=== PATIENT | female | born 1990 | race Asian ===

== ENCOUNTER 2023-02-22 12:04 | Inpatient (IN) ==
[2023-02-22] MEDS ORDERED: Lidocaine 1% VIAL 10 MG/ML 30 ML VIAL INJ PRN (13:32)
[2023-02-22] MEDS ORDERED: Buffered Lidocaine 1% SYRIN 1 ml INTRADERM ONE (13:32)
[2023-02-22] MEDS ORDERED: miSOPROStol 100 mcg TAB VAGINAL ONE (13:32)
[2023-02-22] MEDS ORDERED: Lactated Ringers 1000 ml BAG 1,000 ML IV ONE (13:32)
[2023-02-22] MEDS ORDERED: Promethazine INJ(RESTRICTED) 25 MG/ML 1 ml VIAL IV PRN (13:32)
[2023-02-22 14:44] LABS: Urine Benzodiazepine Screen None Detected (None Detect); Urine Cannabinoids Screen None Detected (None Detect); Urine Opiates Screen None Detected (None Detect)
[2023-02-22] MEDS: Lactated Ringers 1000 ml BAG 1,000 ML IV SCH (20:26)
[2023-02-22 20:58] LABS: ABS Eosinophils 0.2 10^3/uL (0.0-0.5); ABS Lymphocytes 2.1 10^3/uL (1.0-4.8); ABS Monocytes 1.3 10^3/uL (0.0-0.9); ABS Neutrophils 8.7 10^3/uL (1.5-7.6); Eosinophil % 1.8 %; Hematocrit 36.2 % (35-45); Hemoglobin 12.3 g/dL (11.5-14.3); Mean Corpuscular Hemoglobin 31.6 pg (27-33); Mean Corpuscular Hgb Conc 34.1 g/dL (31-36); Mean Corpuscular Volume 92.5 fL (80-97); Mean Platelet Volume 9.9 fL (7.5-11.2); Platelet Count 196 10^3/uL (150-450); Red Blood Count 3.91 10^6/uL (3.63-4.92); Red Cell Distribution Width 14.2 % (12-17); White Blood Count 12.2 10^3/uL (3.8-11.8)
[2023-02-22 21:13] LABS: Albumin 3.3 g/dL (3.2-5.2); Calcium 8.4 mg/dL (8.6-10.3); Potassium 4.4 mmol/L (3.5-5.0); Total Bilirubin 0.5 mg/dL (0.2-1.0)
[2023-02-22 21:19] LABS: Albumin/Globulin Ratio 1.1 (1-3); Creatinine, Serum 0.63 mg/dL (0.51-0.95); Total Protein 6.3 g/dL (6.4-8.9); eGFR CKD-EPI 120.8 (>60)
[2023-02-22] MEDS ORDERED: Morphine 10 MG/ML VIAL (1 ml) IV PRN (21:59)
[2023-02-23] MEDS: Oxytocin in LR 20,000 MILLI.UNIT/1,000 ML BAG IV SCH (02:29)
[2023-02-23] MEDS: Triamcinolone 0.5% OINT 1 TUBE TOPICAL SCH ×3 (05:15→17:14)
[2023-02-23] MEDS ORDERED: LEVOTHYROXINE 50 MCG PO SCH (09:00)
[2023-02-23] MEDS ORDERED: Dinoprostone 10 MG VAG.SUPP VAGINAL ONE (11:50)
[2023-02-23 12:51] LABS: ABS Basophils 0.1 10^3/uL (0.0-0.1); ABS Eosinophils 0.2 10^3/uL (0.0-0.5); ABS Lymphocytes 1.6 10^3/uL (1.0-4.8); ABS Monocytes 1.4 10^3/uL (0.0-0.9); ABS Neutrophils 11.4 10^3/uL (1.5-7.6); Eosinophil % 1.4 %; Hematocrit 35.2 % (35-45); Hemoglobin 12.1 g/dL (11.5-14.3); Lymphocyte % 10.7 %; Mean Corpuscular Hemoglobin 31.8 pg (27-33); Mean Corpuscular Hgb Conc 34.3 g/dL (31-36); Mean Corpuscular Volume 92.8 fL (80-97); Mean Platelet Volume 9.6 fL (7.5-11.2); Platelet Count 183 10^3/uL (150-450); Red Cell Distribution Width 14.1 % (12-17); White Blood Count 14.6 10^3/uL (3.8-11.8)
[2023-02-23] MEDS: Lactated Ringers 1000 ml BAG 1,000 ML IV SCH (13:00)
[2023-02-23 13:25] LABS: Albumin 3.2 g/dL (3.2-5.2); Calcium 8.8 mg/dL (8.6-10.3); Creatinine, Serum 0.5 mg/dL (0.51-0.95); Globulin 3.3 g/dL (2-4); Total Bilirubin 0.4 mg/dL (0.2-1.0); Total Protein 6.5 g/dL (6.4-8.9); eGFR CKD-EPI 127.7 (>60)
[2023-02-23] MEDS ORDERED: Ondansetron 4 mg VIAL 2 MG/ML 2 ml VIAL IV PRN (20:47)
[2023-02-23] MEDS ORDERED: Morphine 10 MG/ML VIAL (1 ml) IV ONE (20:47)
[2023-02-23] MEDS ORDERED: Promethazine INJ(RESTRICTED) 25 MG/ML 1 ml VIAL IV PRN (20:54)
[2023-02-24] MEDS: Triamcinolone 0.5% OINT 1 TUBE TOPICAL SCH ×2 (01:36→09:09)
[2023-02-24] MEDS ORDERED: Lidocaine 2% JELLY 6 ML Topical TOPICAL ONE (06:39)
[2023-02-24] MEDS ORDERED: OBEPIDURAL (200 ML) 200 ML EPIDURAL ONE (06:55)
[2023-02-24] MEDS ORDERED: Lidocaine 1.5% EPI 1:200,000 30 ML SDV ONE (06:55)
[2023-02-24] MEDS: Lactated Ringers 1000 ml BAG 1,000 ML IV SCH ×3 (07:14→15:44)
[2023-02-24] MEDS ORDERED: Lactated Ringers 1000 ml BAG 500 ML IV PRN ×2 (08:54→11:51)
[2023-02-24] MEDS ORDERED: Sodium Citrate/Citric Acid LIQ 15 ML UDC PO PRN (08:54)
[2023-02-24] MEDS ORDERED: Phenylephrine 40 mcg/mL 10mL (400mcg) SYRINGE IV PUSH PRN ×3 (08:54→11:51)
[2023-02-24] MEDS ORDERED: Lactated Ringers 1000 ml BAG 1,000 ML IV ONE (08:54)
[2023-02-24] MEDS: Phenylephrine 40 mcg/mL 10mL (400mcg) SYRINGE IV PUSH PRN ×3 (08:55→11:34)
[2023-02-24] MEDS ORDERED: OBEPIDURAL (200 ML) 200 ML EPIDURAL SCH (09:00)
[2023-02-24 10:02] LABS: Urine Appearance Turbid; Urine Bilirubin Negative (Negative); Urine Blood 3+ (Negative); Urine Color Amber; Urine Glucose Negative (Negative); Urine Ketones Trace (Negative); Urine Nitrite Negative (Negative); Urine Protein 2+(100 mg/dL) (Negative); Urine Specific Gravity 1.017 (1.002-1.030); Urine Urobilinogen Negative (Negative)
[2023-02-24] MEDS: Oxytocin in LR 20,000 MILLI.UNIT/1,000 ML BAG IV SCH (10:38)
[2023-02-24 10:52] LABS: Urine Bacteria Absent (Absent); Urine Red Blood Cell 3+(>10/hpf) (Absent); Urine Squamous Epithelial Cell Present (Absent); Urine White Blood Cell Trace(0-5/hpf) (Absent)
[2023-02-24] MEDS ORDERED: Lactated Ringers 1000 ml BAG 1,000 ML IV SCH ×2 (12:00→20:00)
[2023-02-24] MEDS ORDERED: ceFAZolin 2 GM in NS PREMIX 2 GM/100 ML BAG IVPB ONE (16:24)
[2023-02-24] MEDS ORDERED: Lidocaine 2% PF 10 ML AMP (OR) ONE (16:41)
[2023-02-24] MEDS ORDERED: Azithromycin 500 mg/250 ml NS 500 MG/250 ML BAG IVPB ONE (17:00)
[2023-02-24] MEDS ORDERED: Acetaminophen IV 1 GM/100ML 1,000 MG/100 ML BAG IV ONE (17:38)
[2023-02-24] MEDS ORDERED: Morphine PF AMP (0.5MG/ML) 5 MG/10 ML AMP ONE (17:40)
[2023-02-24] MEDS ORDERED: Ondansetron 4 mg VIAL 2 MG/ML 2 ml VIAL ONE (17:40)
[2023-02-24] MEDS ORDERED: Oxytocin 10 UNITS/ML 1 ML VIAL ONE (17:40)
[2023-02-24] MEDS ORDERED: HYDROmorphone 1 MG/1 ML SYRINGE IV PRN (18:44)
[2023-02-24] MEDS ORDERED: Naloxone 0.4 mg VIAL 0.4 mg/ml 1 ml VIAL IV PRN (18:44)
[2023-02-24] MEDS ORDERED: Ondansetron 4 mg VIAL 2 MG/ML 2 ml VIAL IV PRN (18:45)
[2023-02-24] MEDS ORDERED: Acetaminophen IV 1 GM/100ML 1,000 MG/100 ML BAG IV PRN (18:45)
[2023-02-24] MEDS ORDERED: Naloxone 0.4 mg VIAL 0.4 mg/ml 1 ml VIAL IV PUSH PRN (18:45)
[2023-02-24] MEDS ORDERED: Witch Hazel PAD JAR TOPICAL PRN (19:19)
[2023-02-24] MEDS ORDERED: Dibucaine 1% OINT 28.35 GM TUBE PR PRN (19:19)
[2023-02-24] MEDS ORDERED: Glycerin ADULT 2.4 gm SUPP PR PRN (19:19)
[2023-02-25] MEDS: Triamcinolone 0.5% OINT 1 TUBE TOPICAL SCH ×2 (02:58→17:15)
[2023-02-25 07:10] LABS: ABS Eosinophils 0.3 10^3/uL (0.0-0.5); ABS Lymphocytes 1.4 10^3/uL (1.0-4.8); ABS Monocytes 1.4 10^3/uL (0.0-0.9); ABS Neutrophils 12.7 10^3/uL (1.5-7.6); ABS Nucleated RBC 0.02 10^3/ul; Eosinophil % 1.8 %; Hematocrit 31.4 % (35-45); Hemoglobin 10.9 g/dL (11.5-14.3); Lymphocyte % 9.1 %; Mean Corpuscular Hemoglobin 32.2 pg (27-33); Mean Corpuscular Hgb Conc 34.8 g/dL (31-36); Mean Corpuscular Volume 92.6 fL (80-97); Mean Platelet Volume 9.6 fL (7.5-11.2); Nucleated Red Blood Cells % 0.1 /100 WBC (0.0-0.4); Platelet Count 158 10^3/uL (150-450); Red Blood Count 3.39 10^6/uL (3.63-4.92); Red Cell Distribution Width 14.4 % (12-17); White Blood Count 15.9 10^3/uL (3.8-11.8)
[2023-02-26] MEDS: Triamcinolone 0.5% OINT 1 TUBE TOPICAL SCH ×3 (01:25→20:18)
[2023-02-27 08:34] VITALS: BP 109/55
[2023-02-27] MEDS: Triamcinolone 0.5% OINT 1 TUBE TOPICAL SCH (10:33)
== END 2023-02-27 13:10 | disposition home or self-care (01) | DRG 540 ==
LOC: MCHOBOUT 12:04 → MCHOB 13:34
PROVIDERS: ADMIT Obstetrics & Gynecology; ATTEND Obstetrics & Gynecology